=== PATIENT | male | born 1965 | race Caucasian/White ===

== ENCOUNTER 2021-04-12 20:52 | Emergency (ER) | payer OTHER ==
[2021-04-12 21:23] VITALS: BP 120/76; PULSE 71; RESP 20; TEMP 97.7
[2021-04-12] MEDS ORDERED: DIPH,PERTUS(ACELL)TETVAC-LF 0.5 ML VIAL IM ONE (21:38)
[2021-04-12] MEDS ORDERED: TOPICAL SKIN ADHESIVE 1 EACH AMP TOPICAL ONE (21:38)
--- NOTE | 2021-04-12 22:10 | ED ---
Wound/Laceration HPI - General Chief Complaint: Wound/Laceration Stated Complaint: L Hand Lac Time Seen by Provider: 04/12/21 21:25 Source: patient, RN notes reviewed Mode of arrival: ambulatory - History of Present Illness Initial Comments: Patient is a 55-year-old male that presents to emergency department with a left hand laceration. He notes he broke a bowl earlier and cut the interdigital space between his left middle and ring finger. Patient notes that was not bleeding earlier today but he moved it is sharp but x-ray came to the emergency room to get it repaired. Patient notes that he was concluded at home but his Covid stopping. Patient denied knowing his last tetanus shot. Patient was otherwise well-appearing no apparent distress or pain. He denied any chest pain shortness breath headache nausea vomiting diarrhea constipation fever fatigue chills. - Related Data Allergies Allergy/AdvReac Type Severity Reaction Status Date / Time No Known Allergies Allergy Verified 04/12/21 21:24 Review of Systems ROS Statement: Those systems with pertinent positive or pertinent negative responses have been documented in the HPI. ROS Other: All systems not noted in ROS Statement are negative. Past Medical History Past Medical History: No Reported History History of Any Multi-Drug Resistant Organisms: None Reported Past Surgical History: No Surgical Hx Reported Past Psychological History: No Psychological Hx Reported Smoking Status: Never smoker Past Alcohol Use History: None Reported Past Drug Use History: None Reported General Exam General appearance: alert, in no apparent distress Head exam: Present: atraumatic, normocephalic, normal inspection Eye exam: Present: normal appearance, PERRL, EOMI. Absent: scleral icterus, conjunctival injection, periorbital swelling ENT exam: Present: normal exam, mucous membranes moist Neck exam: Present: normal inspection Respiratory exam: Present: normal lung sounds bilaterally. Absent: respiratory distress, wheezes, rales, rhonchi, stridor Cardiovascular Exam: Present: regular rate, normal rhythm, normal heart sounds. Absent: systolic murmur, diastolic murmur, rubs, gallop, clicks Extremities exam: Present: normal inspection, full ROM, normal capillary refill. Absent: tenderness, pedal edema, joint swelling, calf tenderness Neurological exam: Present: alert, oriented X3 Psychiatric exam: Present: normal affect, normal mood Skin exam: Present: warm, dry, intact, normal color. Absent: rash Expanded Type of lesion: Present: laceration (Laceration at the base of the left ring finger measuring approximately 1 cm, margins well approximate.) Course Vital Signs 04/12/21 21:20 Temperature 97.7 F Pulse Rate 71 Respiratory 20 Rate Blood Pressure 120/76 O2 Sat by Pulse 97 Oximetry Procedures - Laceration Laceration #1 Consent Obtained: verbal consent Indication: laceration Site: hand (Left ring finger base) Size (cm): 1 Description: linear Type of Sutures: other (Skin adhesive) Patient Tolerated Procedure: well, no complications Medical Decision Making - Medical Decision Making 55-year-old male with left ring finger laceration. Tetanus shot, skin adhesive ordered. Patient's laceration was repaired with skin adhesive. Patient is able discharge home with follow-up primary care. Case discussed with Dr. Clark, patient discharge home. Disposition Clinical Impression: Laceration Disposition: HOME SELF-CARE Condition: Stable Instructions (If sedation given, give patient instructions): Laceration (ED), Skin Adhesive Care (ED) Additional Instructions: Please return to the Emergency Department if symptoms worsen or any other concerns. Follow-up with primary care 1-2 days. Keep area clean and dry. Is patient prescribed a controlled substance at d/c from ED?: No Referrals: Andrews Trevizo MD [Primary Care Provider] - 1-2 days Time of Disposition: 22:10
== END 2021-04-12 22:23 | disposition home or self-care (01) ==
LOC: EC 20:52
DX: S61.215A Laceration without foreign body of left ring finger without damage to nail, initial encounter (principal); W26.8XXA Contact with other sharp object(s), not elsewhere classified, initial encounter
CPT/HCPCS: 90471; 90715; 99282